=== PATIENT | female | born 1970 | race Caucasian/White ===

== ENCOUNTER 2020-04-20 10:18 | Emergency (ER) | payer MEDICAID ==
[~2020-04-20] VITALS: Ht 162.6 cm; Wt 95.3 kg
[2020-04-20 10:32] VITALS: BP 140/73
--- NOTE | 2020-04-20 10:38 | NUR ---
Patient ambulated to bed 1. RN evaluating patient at bedside.
--- NOTE | 2020-04-20 10:40 | NUR ---
49 Y/O FEMALE FROM HOME C/O URINARY RETENTION X 6 DAYS. PT STATES SHE WAS SEEN IN ER 5 DAYS AGO AND THEY SENT HER HOME. PT WAS SEEN AT PRIMARY CARE TODAY AND WAS TOLD TO COME TO ER TO HAVE CATHETER PLACED. STATES LAST URINATION WAS 1 HR AGO AND VERY MINIMAL AMOUNT. DENIES PAIN, STATES FEELING OF BEING BLOATED. POSITIONED FOR COMFORT. VSS MEDHX: HTN, ANXIETY
--- NOTE | 2020-04-20 10:45 | NUR ---
PT AMBULATED TO RESTROOM FOR COLLECTION OF URINE
[2020-04-20 11:54] VITALS: BP 132/70
--- NOTE | 2020-04-20 11:54 | NUR ---
Patient discharged with v/s stable. Written and verbal after care instructions given and explained. Patient verbalized understanding. Ambulatory with steady gait. All questions addressed prior to discharge. Advised to follow up with PMD.
== END 2020-04-20 11:54 | disposition home or self-care (01) ==
LOC: MED 10:18
DX: R33.9 Retention of urine, unspecified (principal); F41.9 Anxiety disorder, unspecified; F32.9 Major depressive disorder, single episode, unspecified; I10 Essential (primary) hypertension
CPT/HCPCS: 81002; 81025; 99284